=== PATIENT | female | born 2000 | race Caucasian/White ===

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

== ENCOUNTER 2023-06-09 16:54 | Observation (INO) ==
[2023-06-09] MEDS ORDERED: SODIUM CHLORIDE 0.9% 500 ML IV STA (17:13)
[2023-06-09 19:44] LABS: Appearance Urine Clear (Clear); Bacteria Urine Automated Negative (Negative); Bilirubin Urine Negative (Negative); Blood Urine 2+ (Negative); Color Urine Yellow; Epithelial Cell Urine Auto >30 /lpf (0-5); Glucose Urine UA Negative (Negative); Ketones Urine 2+ (Negative); Leukocyte Esterase Urine Negative (Negative); Nitrite Urine Negative (Negative); Protein Urine Trace (Negative); RBC Urine Automated >30 /hpf (0-4); Specific Gravity Urine 1.018 (1.000-1.030); Urobilinogen Urine Negative (Negative); pH Urine 6.5 (4.5-7.5)
[2023-06-09] MEDS ORDERED: MoRPHine SULFATE 4 MG/ML 1 ML CARP\\VIAL IV STA ×2 (19:56→21:33)
[2023-06-09] MEDS ORDERED: KETOROLAC TROMETHAMINE 15 MG/ML VIAL IV STA (19:56)
[2023-06-09] MEDS ORDERED: SODIUM CHLORIDE 0.9% 1000ML 1,000 ML IV ONE (19:56)
[2023-06-09] MEDS ORDERED: ONDANSETRON INJ 2 MG/ML 2 ML VIAL IV STA (19:56)
[2023-06-09 20:01] LABS: Albumin Globulin Ratio 1.5 (0.9-2); Albumin Level 4.7 gm/dl (3.4-5.0); BUN Creatinine Ratio 7.9 (10-20); Bilirubin,Total 0.4 mg/dl (0.2-1.0); Calcium 9.7 mg/dl (8.6-10.3); Creatinine Clr Calc Pharmacy 61.1 ml/min; Est GFR (African American) 78.5 ml/min; Est GFR (Non-African American) 67.7 ml/min; Globulin 3.2 gm/dl (2.5-4.0); Potassium 3.1 mmol/L (3.5-5.1); Total Protein 7.9 gm/dl (6.0-8.3)
--- NOTE | 2023-06-09 20:01 | Emergency Department Note ---
Impression & Plan Acute left flank pain, Hydronephrosis, Hematuria, Renal colic ED Provider Note NAME: DAYA CORMIER AGE: 22 SEX: F : 2000 ARRIVES VIA: Walk-In INFORMANT: [Patient] ED PROVIDER(S): [Ector Gamboa MD] CHIEF COMPLAINT: Flank pain HISTORY OF PRESENT ILLNESS: The patient is a 22-year-old female presents to the ED with complaints of left upper quadrant and left flank pain. The patient was seen in our ED 3 days ago. She had was having vomiting and diarrhea at that time. She was having left upper quadrant pain. Patient was treated here in the ED and felt improved. She was discharged. She states that the diarrhea has quit but the vomiting has returned today and she now has increasing pain in the left upper quadrant into the left flank. She went to [facility] and they felt that this was not a UTI. They recommended a CT scan and she was referred to the ED. Patient has no history of previous renal stone. She has noticed some frequency with urination but no burning to urinate. She has not had vaginal discharge. No fever. No cough or cold or congestion. No shortness of breath. PMHx/PSHx: See Below SOCIAL HISTORY: See Below. PHYSICAL EXAM: GENERAL: Patient is in no acute distress. HEENT: No acute trauma, normocephalic atraumatic, mucous membranes moist, no nasal congestion. NECK: No stridor, no adenopathy, no meningismus, trachea is midline. LUNGS: Clear to auscultation bilaterally, no wheeze, no rhonchi, breath sounds equal. HEART: Without murmurs gallops or rubs, regular rate and rhythm. ABDOMEN: Soft, tender in the epigastrium and left upper quadrant, no pe ritonitis. EXTREMITIES: No cyanosis or edema, full range of motion of all the joints without pain or difficulty, no signs for acute trauma. NEUROLOGIC: Oriented x 3, no acute motor or sensory deficits, no focal weakness. SKIN: No rash, no jaundice, no diaphoresis. Back: Left flank discomfort to percussion. DIFFERENTIAL DIAGNOSIS: Renal colic, pyelonephritis, UTI, gastritis, diverticulitis, dehydration, renal failure, among others. EMERGENCY DEPARTMENT COURSE/PROCEDURES: Prior/Outside records reviewed: Recent ED note. MEDICAL DECISION MAKING: There is a mild leukocytosis, this could be consistent with infection or the stress of her presentation. Of note, the white count is slightly lower than a few days ago. No anemia. The patient has a normal platelet count. Potassium is somewhat low at 3.1, no renal failure. No concerning liver enzyme elevation. Urinalysis shows hematuria, no infection. Abdominal and pelvis CT shows left- sided hydronephrosis with a ureteral stone. On exam, the patient was tender in the left upper quadrant and had left flank discomfort to percussion. She was not febrile or toxic. The patient received IV Zofran, IV saline, IV potassium. She received IV morphine. She was eventually given IV Tylenol, additional IV morphine and then some IV Phenergan. She was given oral Flomax. Patient is still having discomfort despite the above-mentioned medications. This is her second visit now in just a few days. I do think hospitalization will be warranted. I do believe her pain and complaints are from the left ureteral stone/hydronephrosis. DISPOSITION: Patient's presentation and findings warrant a hospital stay. Past Med/Surg History Medical History (Updated 06/09/23 @ 22:18 by Ector Gamboa MD) Anxiety Asthma NO INHALER USED Attention deficit disorder (ADD) Bipolar disorder Celiac disease Depression Migraine Post traumatic stress disorder Surgical History Family history of pseudocholinesterase deficiency MOTHER TESTED POSITIVE (RUNS IN MATERNAL SIDE OF FAMILY) PT HAS HAS SURGERY IN PAST WITH GENERAL ANESTHESIA WITH NO PROBLEMS. History of bunionectomy RT AND HARDWARE REMOVED History of nasal septoplasty History of tooth extraction Social History Smoking Status: Current every day smoker Tobacco Type: E-cigarettes / Vaping Cigarettes Per Day: USES JUUL DAILY; Second Hand Exposure: No; Do You Dip or Chew Tobacco: No; Hx Alcohol Use: No Hx Substance Use: No Preferred Language: Indonesian Communication Ability: Effective Goat Farmer Required: No Beliefs That Will Affect Care: None Current Living Situation: Family Current Living Situation Comment: LIVES WITH FATHER Feels Safe at Home: Yes Assistive Devices: Glasses Allergies Allergies Allergy/AdvReac Type Severity Reaction Status Date / Time gluten Allergy Severe CELIAC Verified 05/20/20 11:08 DISEASE No Known Drug Allergies Allergy Unknown . Verified 05/20/20 11:08 METAL Allergy Intermediate DID NOT Uncoded 05/20/20 11:08 TOLERATE SCREW IN ANKLE-GOT REMOVED Dust Allergy Unknown Uncoded 05/20/20 11:08 No Known Drug Allergies Allergy Unknown Uncoded 05/20/20 11:08 Pollen Allergy Unknown Uncoded 05/20/20 11:08 Ragweed Allergy Unknown Uncoded 05/20/20 11:08 Home Meds Home Medications Medication Instructions Recorded Confirmed lorazepam 0.5 mg tablet 0.5 mg PO DAILY 05/20/20 06/06/23 desogestrel 0.15 mg-ethinyl 1 tab PO DAILY 06/06/23 06/06/23 estradiol 0.03 mg tablet (Isibloom) lamotrigine 100 mg tablet 100 mg PO DAILY 06/06/23 06/06/23 quetiapine 50 mg tablet,extended 50 mg PO DAILY 06/06/23 06/06/23 release 24 hr Previous Rx's Medication Instructions Recorded promethazine 25 mg tablet 25 mg PO Q6H PRN nausea and 06/06/23 vomiting #14 tabs Results & Data (ED) Vital Signs Vital Signs - 24 hr 06/09/23 17:08 Temperature 36.8 C Temperature Source Temporal Artery Scan Pulse Rate 82 Respiratory Rate 18 Respiratory Effort / Characteristics Non-Labored Spontaneous Respiratory Depth Normal Blood Pressure 150/83 H Blood Pressure Mean 105 Blood Pressure Position Sitting Pulse Oximetry 97 Oxygen Delivery Method Room Air Sepsis Recent Fever Within 48 Hours No Sepsis New/Unexplained Change in Mental Status N/A Sepsis Action Taken by Nursing No Action Required Home Medications Current Medication List: was personally reviewed by me Laboratory Data Attestation: I reviewed the patient's lab results. 06/09/23 19:15 06/09/23 19:15 Lab Results 06/09/23 06/09/23 06/09/23 Range/Units 19:03 19:15 19:15 WBC 14.68 H (4.8-10.8) K/ul RBC 4.53 (4.20-5.40) M/uL Hgb 13.6 (12.0-16.0) g/dl Hct 39.8 (37.0-47.0) % MCV 87.9 (80.0-100.0) fL MCH 30.0 (25.0-34.0) pg MCHC 34.2 (32.0-36.0) g/dL RDW Std Deviation 41.6 (36.4-46.3) fL RDW Coeff of Gasper 13.0 (11.5-14.5) % Plt Count 305 (130-400) K/uL MPV 10.4 (9.4-12.4) fL Immature Gran % (Auto) 0.5 % Neut % (Auto) 77.2 % Lymph % (Auto) 15.1 % [place] % (Auto) 6.7 % Eos % (Auto) 0.1 % Baso % (Auto) 0.4 % Neut # (Auto) 11.33 H (1.40-6.50) K/uL Lymph # (Auto) 2.21 (1.2-3.4) K/uL [place] # (Auto) 0.99 H (0.11-0.59) K/uL Eos # (Auto) 0.02 (0-0.50) K/uL Baso # (Auto) 0.06 (0-0.2) K/uL Immature Gran # (Auto) 0.07 (0.01-0.20) K/uL Sodium 140 (136-145) mmol/L Potassium 3.1 L (3.5-5.1) mmol/L Chloride 107 (98-107) mmol/L Carbon Dioxide 21 (21-32) mmol/L Anion Gap 12 H (3-11) BUN 9 (6-23) mg/dl Creatinine 1.14 (0.6-1.2) mg/dl Est Cr Clr Drug Dosing 61.1 ml/min Est GFR ( Amer) 78.5 ml/min Est GFR (Non-Af Amer) 67.7 ml/min BUN/Creatinine Ratio 7.9 L (10-20) Glucose 88 (70-99(Fasting)) mg/dl Calcium 9.7 (8.6-10.3) mg/dl Total Bilirubin 0.4 (0.2-1.0) mg/dl AST 12 L (13-39) U/L ALT 7 (7-52) U/L Alkaline Phosphatase 37 (34-104) U/L Total Protein 7.9 (6.0-8.3) gm/dl Albumin 4.7 (3.4-5.0) gm/dl Globulin 3.2 (2.5-4.0) gm/dl Albumin/Globulin Ratio 1.5 (0.9-2) Urine Color Yellow Urine Appearance Clear (Clear) Urine pH 6.5 (4.5-7.5) Ur Specific [place] 1.018 (1.000-1.030) Urine Protein Trace H (Negative) Urine Glucose (UA) Negative (Negative) Urine Ketones 2+ H (Negative) Urine Blood 2+ H (Negative) Urine Nitrite Negative (Negative) Urine Bilirubin Negative (Negative) Urine Urobilinogen Negative (Negative) Ur Leukocyte Esterase Negative (Negative) Urine WBC (Auto) 1-5 (0-5) /hpf Urine RBC (Auto) >30 H (0-4) /hpf U Hyaline Cast (Auto) 1-5 (0-5) /lpf U Epithel Cells (Auto) >30 H (0-5) /lpf Urine Bacteria (Auto) Negative (Negative) POC Ur Test (NEG) 06/09/23 Range/Units 19:21 WBC (4.8-10.8) K/ul RBC (4.20-5.40) M/uL Hgb (12.0-16.0) g/dl Hct (37.0-47.0) % MCV (80.0-100.0) fL MCH (25.0-34.0) pg MCHC (32.0-36.0) g/dL RDW Std Deviation (36.4-46.3) fL RDW Coeff of Gasper (11.5-14.5) % Plt Count (130-400) K/uL MPV (9.4-12.4) fL Immature Gran % (Auto) % Neut % (Auto) % Lymph % (Auto) % [place] % (Auto) % Eos % (Auto) % Baso % (Auto) % Neut # (Auto) (1.40-6.50) K/uL Lymph # (Auto) (1.2-3.4) K/uL [place] # (Auto) (0.11-0.59) K/uL Eos # (Auto) (0-0.50) K/uL Baso # (Auto) (0-0.2) K/uL Immature Gran # (Auto) (0.01-0.20) K/uL Sodium (136-145) mmol/L Potassium (3.5-5.1) mmol/L Chloride (98-107) mmol/L Carbon Dioxide (21-32) mmol/L Anion Gap (3-11) BUN (6-23) mg/dl Creatinine (0.6-1.2) mg/dl Est Cr Clr Drug Dosing ml/min Est GFR ( Amer) ml/min Est GFR (Non-Af Amer) ml/min BUN/Creatinine Ratio (10-20) Glucose (70-99(Fasting)) mg/dl Calcium (8.6-10.3) mg/dl Total Bilirubin (0.2-1.0) mg/dl AST (13-39) U/L ALT (7-52) U/L Alkaline Phosphatase (34-104) U/L Total Protein (6.0-8.3) gm/dl Albumin (3.4-5.0) gm/dl Globulin (2.5-4.0) gm/dl Albumin/Globulin Ratio (0.9-2) Urine Color Urine Appearance (Clear) Urine pH (4.5-7.5) Ur Specific [place] (1.000-1.030) Urine Protein (Negative) Urine Glucose (UA) (Negative) Urine Ketones (Negative) Urine Blood (Negative) Urine Nitrite (Negative) Urine Bilirubin (Negative) Urine Urobilinogen (Negative) Ur Leukocyte Esterase (Negative) Urine WBC (Auto) (0-5) /hpf Urine RBC (Auto) (0-4) /hpf U Hyaline Cast (Auto) (0-5) /lpf U Epithel Cells (Auto) (0-5) /lpf Urine Bacteria (Auto) (Negative) POC Ur Test NEG (NEG) Administered Medications Discontinued Medications Sodium Chloride (Nss) 500 mls @ 999 mls/hr IV .Q31M STA Stop: 06/09/23 17:43 Last Infusion: 06/09/23 20:41 Dose: 0 mls/hr Documented By: Admin: 06/09/23 19:49 Dose: 999 mls/hr Documented By: CAREN Sodium Chloride (Nss 1000ml) 1,000 mls @ 999 mls/hr IV .Q1H1M ONE Stop: 06/09/23 20:56 Last Infusion: 06/09/23 22:01 Dose: 0 mls/hr Documented By: Admin: 06/09/23 20:21 Dose: 999 mls/hr Documented By: CAREN Potassium Chloride (K [place] / Wtr) 10 meq in 100 mls @ 100 mls/hr IV ONE ONE Stop: 06/09/23 21:20 Last Infusion: 06/09/23 22:00 Dose: 0 mls/hr Documented By: Admin: 06/09/23 20:59 Dose: 100 mls/hr Documented By: CAREN Ketorolac Tromethamine (Ketorolac Tromethamine 15 Mg/Ml Vial) 15 mg IV NOW STA Stop: 06/09/23 19:57 Last Admin: 06/09/23 20:21 Dose: 15 mg Documented By: CAREN Morphine Sulfate (Morphine Sulfate 4 Mg/Ml 1 Ml Carp\Vial) 4 mg IV NOW STA Stop: 06/09/23 19:57 Last Admin: 06/09/23 20:21 Dose: 4 mg Documented By: CAREN Ondansetron HCl (Ondansetron Inj 2 Mg/Ml 2 Ml Vial) 4 mg IV NOW STA Stop: 06/09/23 19:57 Last Admin: 06/09/23 20:21 Dose: 4 mg Documented By: CAREN Tamsulosin HCl (Tamsulosin Hcl 0.4 Mg Cap) 0.4 mg PO NOW ONE Stop: 06/09/23 20:54 Last Admin: 06/09/23 21:15 Dose: 0.4 mg Documented By: CAREN Imaging Data Radiologist's Impression: Abdomen/Pelvis CT 06/09/23 19:56 Exam(s): CT ABDOMEN + PELVIS Without Contrast EXAM: CT Abdomen and Pelvis Without Intravenous Contrast CLINICAL HISTORY: Reason for exam: luq and flank pain. TECHNIQUE: Axial computed tomography images of the abdomen and pelvis without intravenous contrast. CTDI is 11.42 mGy and DLP is 536.14 mGy-cm. Automated exposure control was utilized for the study. A dose lowering technique was utilized adhering to the principles of ALARA. COMPARISON: No relevant prior studies available. FINDINGS: Lung bases: Unremarkable. No mass. No consolidation. ABDOMEN: Liver: Unremarkable. Gallbladder and bile ducts: Unremarkable. No calcified stones. No ductal dilation. Pancreas: Unremarkable. No ductal dilation. Spleen: Unremarkable. No splenomegaly. Adrenals: Unremarkable. No mass. Kidneys and ureters: Obstructing 2 mm left UVJ stone causing mild upstream hydroureteronephrosis. Right kidney and collecting system are normal. Stomach and bowel: Unremarkable. No obstruction. No mucosal thickening. PELVIS: Appendix: Visualized segment of the appendix is normal; no secondary signs of appendicitis. Bladder: Unremarkable. No stones. Reproductive: Unremarkable as visualized. ABDOMEN and PELVIS: Intraperitoneal space: Unremarkable. No free air. No significant fluid collection. Bones/joints: No acute fracture. No dislocation. Soft tissues: Unremarkable. Vasculature: Unremarkable. No abdominal aortic aneurysm. Lymph nodes: Unremarkable. No enlarged lymph nodes. IMPRESSION: Obstructing 2 mm left UVJ stone causing mild upstream hydroureteronephrosis. Electronically signed by: Eyad Salcedo M.D. 06/09/23 20:49 PM Discharge Plan Visit Data Chief Complaint: Flank Pain Stated Complaint: CRAMPING,BACK PAIN,BLADDER FEELS FULL ED Provider: Ector Gamboa Discharge Problem: Acute left flank pain, Hydronephrosis, Hematuria, Renal colic Patient Disposition: Admitted As Inpatient Condition: Fair Forms Stand Alone Forms: [facility] [place] [employer] Prescriptions Prescriptions: No Action lorazepam 0.5 mg tablet 0.5 mg PO DAILY desogestrel-ethinyl estradiol [Isibloom] 0.15-0.03 mg tablet 1 tab PO DAILY lamotrigine 100 mg tablet 100 mg PO DAILY quetiapine 50 mg tablet extended release 24 hr 50 mg PO DAILY Rx Instructions: Per pt she takes 50-100 mg promethazine 25 mg tablet 25 mg PO Q6H PRN (Reason: nausea and vomiting) Qty: 14 0RF Referrals Referrals: PCP,NO [Physician] -
[2023-06-09 20:02] LABS: Basophils # (auto) 0.06 K/uL (0-0.2); Basophils % (auto) 0.4 %; Eosinophils # (auto) 0.02 K/uL (0-0.50); Eosinophils % (auto) 0.1 %; Hematocrit (blood only) 39.8 % (37.0-47.0); Hemoglobin 13.6 g/dl (12.0-16.0); Immature Granulocytes # (auto) 0.07 K/uL (0.01-0.20); Immature Granulocytes % (auto) 0.5 %; Lymphocytes # (auto) 2.21 K/uL (1.2-3.4); Lymphocytes % (auto) 15.1 %; Mean Corpuscular Hgb Conc 34.2 g/dL (32.0-36.0); Mean Corpuscular Volume 87.9 fL (80.0-100.0); Mean Platelet Volume 10.4 fL (9.4-12.4); Monocytes # (auto) 0.99 K/uL (0.11-0.59); Monocytes % (auto) 6.7 %; Neutrophils # (auto) 11.33 K/uL (1.40-6.50); Neutrophils % (auto) 77.2 %; Platelet Count 305 K/uL (130-400); RDW Standard Deviation 41.6 fL (36.4-46.3); Red Blood Count 4.53 M/uL (4.20-5.40); White Blood Count 14.68 K/ul (4.8-10.8)
[2023-06-09] MEDS ORDERED: POTASSIUM CHLORIDE / WTR 10 MEQ/100 ML PLCT IV ONE (20:21)
--- NOTE | 2023-06-09 20:51 | CT Scan Report ---
Exam(s): CT ABDOMEN + PELVIS Without Contrast EXAM: CT Abdomen and Pelvis Without Intravenous Contrast CLINICAL HISTORY: Reason for exam: luq and flank pain. TECHNIQUE: Axial computed tomography images of the abdomen and pelvis without intravenous contrast. CTDI is 11.42 mGy and DLP is 536.14 mGy-cm. Automated exposure control was utilized for the study. A dose lowering technique was utilized adhering to the principles of ALARA. COMPARISON: No relevant prior studies available. FINDINGS: Lung bases: Unremarkable. No mass. No consolidation. ABDOMEN: Liver: Unremarkable. Gallbladder and bile ducts: Unremarkable. No calcified stones. No ductal dilation. Pancreas: Unremarkable. No ductal dilation. Spleen: Unremarkable. No splenomegaly. Adrenals: Unremarkable. No mass. Kidneys and ureters: Obstructing 2 mm left UVJ stone causing mild upstream hydroureteronephrosis. Right kidney and collecting system are normal. Stomach and bowel: Unremarkable. No obstruction. No mucosal thickening. PELVIS: Appendix: Visualized segment of the appendix is normal; no secondary signs of appendicitis. Bladder: Unremarkable. No stones. Reproductive: Unremarkable as visualized. ABDOMEN and PELVIS: Intraperitoneal space: Unremarkable. No free air. No significant fluid collection. Bones/joints: No acute fracture. No dislocation. Soft tissues: Unremarkable. Vasculature: Unremarkable. No abdominal aortic aneurysm. Lymph nodes: Unremarkable. No enlarged lymph nodes. IMPRESSION: Obstructing 2 mm left UVJ stone causing mild upstream hydroureteronephrosis. Electronically signed by: Eyad Salcedo M.D. 06/09/23 20:49 PM
[2023-06-09] MEDS ORDERED: TAMSULOSIN HCL 0.4 MG CAP PO ONE (20:53)
[2023-06-09] MEDS ORDERED: ACETAMINOPHEN 1,000 MG/100 ML VIAL IV STA (21:33)
[2023-06-09] MEDS ORDERED: PROMETHAZINE 6.25 MG/50.25 ML BAG IV STA (21:33)
[2023-06-09] MEDS ORDERED: KETOROLAC TROMETHAMINE 15 MG/ML VIAL IV ONE (22:43)
[2023-06-09] MEDS ORDERED: PROMETHAZINE HCL 6.25 MG in SODIUM CHLORIDE 0.9% 50 ML IV PRN (22:44)
[2023-06-09] MEDS ORDERED: LORazepam 2 MG/1 ML VIAL IV PRN (22:44)
[2023-06-09] MEDS ORDERED: LACTATED RINGER'S 1,000 ML IV ONE (22:45)
[2023-06-09 22:51] LABS: Magnesium 1.8 mg/dl (1.7-2.4)
[2023-06-09] MEDS: POTASSIUM CHLORIDE / WTR 10 MEQ/100 ML PLCT IV SCH (23:40)
[2023-06-10] MEDS ORDERED: MAGNESIUM SULFATE / D5W 1 GM/100 ML BAG IV ONE (00:26)
[2023-06-10] MEDS ORDERED: lamoTRIgine 100 MG TAB PO STA (00:54)
[2023-06-10] MEDS ORDERED: QUEtiapine FUMARATE 50 MG TABCR PO STA (00:54)
[2023-06-10] MEDS ORDERED: ALPRAZolam 0.5 MG TABLET PO PRN (01:01)
[2023-06-10] MEDS ORDERED: KETOROLAC TROMETHAMINE 15 MG/ML VIAL IV PRN (01:01)
[2023-06-10] MEDS ORDERED: oxyCODONE HCL IR 5 MG TAB (IMMEDIATE RELEASE) PO PRN (01:01)
[2023-06-10] MEDS: POTASSIUM CHLORIDE / WTR 10 MEQ/100 ML PLCT IV SCH ×2 (01:09→02:15)
--- NOTE | 2023-06-10 05:11 | History & Physical Report ---
Date of Service June 10, 2023 Assessment & Plan (1) Renal colic: Plan: Secondary to obstructive uropathy/urolithiasis no prior episodes No sepsis for now Hypokalemia secondary to illness bronchial asthma, stable anxiety/mood disorder, patient admits to increased anxiety from illness ongoing vape use GMF Analgesia, IVF Continue Flomax strain urine Urology consult in a.m. Re: Obstructive uropathy N.p.o. until patient seen by urology in anticipation of procedure. Replace potassium Anxiolytic as needed Nicotine replacement therapy as needed DVT prophylaxis. SCDs Re: Hematuria Full code Patient mother requesting updates providers. Ms. Sade Cutler, contact #[phone]. Text document was generated using [employer] voice recognition software. It may contain grammatical or spelling errors. Kindly contact undersigned for clarification of any documentation item in question. History of Present Illness Chief Complaint: Worsening left-sided abdominal/flank pain Primary Care Provider: Dr. Ritika Campuzano History obtained from patient, family, and records. Medical history significant for bronchial asthma, anxiety/mood disorder, GERD, celiac disease, ongoing vape use. 4 days ago patient noted achy left-sided abdominal pain, nausea, vomiting diarrhea symptoms. Symptoms attributed to viral gastroenteritis. Seen at the ER but later discharged home. Worsening symptoms later associated with GI symptoms and hematuria. No fever, no chills, no chest pain, no SOB. Patient seen at urgent care center yesterday. UA and CAT scan requested. Patient consulted ER for worsening symptoms. Flomax administered at the ER for renal colic. Medical History as above Surgical History : Bunion surgery, dental surgery Family History : Celiac disease, hypertension, DM Personal/Social history : Vape use, no EtOH intake, hairstylist Allergies Allergy/AdvReac Type Severity Reaction Status Date / Time gluten Allergy Severe CELIAC Verified 05/20/20 11:08 DISEASE grass pollen Allergy Unknown Unknown Verified 06/09/23 22:49 house dust Allergy Unknown Unknown Verified 06/09/23 22:49 nickel Allergy Unknown Unknown Verified 06/09/23 22:49 No Known Drug Allergies Allergy Unknown . Verified 05/20/20 11:08 ragweed pollen Allergy Unknown Unknown Verified 06/09/23 22:49 Home Medications Medication Instructions Recorded Confirmed Type lamotrigine 100 mg tablet 100 mg PO HS 07/11/23 07/11/23 History promethazine 25 mg tablet 25 mg PO Q6H PRN nausea and 06/06/23 Rx vomiting #14 tabs quetiapine 50 mg tablet,extended 100 mg PO DAILY 06/06/23 06/06/23 History release 24 hr alprazolam 0.5 mg tablet 0.5 mg PO BID PRN Anxiety 06/10/23 06/10/23 History ibuprofen 400 mg tablet 400 mg PO Q6H PRN pain #14 tabs 06/10/23 Rx tamsulosin 0.4 mg capsule 0.4 mg PO HS 10 days #10 caps 06/10/23 Rx Past Med/Surg History Medical History (Updated 06/09/23 @ 22:18 by Ector Gamboa MD) Anxiety Asthma NO INHALER USED Attention deficit disorder (ADD) Bipolar disorder Celiac disease Depression Migraine Post traumatic stress disorder Surgical History Family history of pseudocholinesterase deficiency MOTHER TESTED POSITIVE (RUNS IN MATERNAL SIDE OF FAMILY) PT HAS HAS SURGERY IN PAST WITH GENERAL ANESTHESIA WITH NO PROBLEMS. History of bunionectomy RT AND HARDWARE REMOVED History of nasal septoplasty History of tooth extraction Social History Smoking Status: Current every day smoker Tobacco Type: E-cigarettes / Vaping Cigarettes Per Day: vape; Second Hand Exposure: No; Do You Dip or Chew Tobacco: No; Hx Alcohol Use: No Hx Substance Use: Yes Last Used Substance: Days (ago) Last Used Substance Other:: 1 day ago Substance Use Type Other:: has med card for marijuana Preferred Language: [place] Communication Ability: Effective Forward Air Controller/Air Officer Required: No Beliefs That Will Affect Care: None Current Living Situation: Alone Current Living Situation Comment: LIVES WITH FATHER Feels Safe at Home: Yes Assistive Devices: None Review of Systems Review of Systems: As per HPI, all other systems reviewed and negative Physical Exam Physical Exam: GENERAL: Comfortable, slightly anxious, no respiratory distress SKIN: Normal color, warm HEENT: [place] palpebral conjunctivae, no ptosis, dry buccal mucosa NECK : Supple, no tenderness CHEST : CTA, no tenderness HEART : RRR, no obvious murmurs ABDOMEN: Some distention, left-sided abdominal tenderness EXTREMITIES : No LE swelling/tenderness, no other conspicuous deformities noted NEUROLOGIC : Coherent, no facial asymmetry, no other gross focality Results & Data Results & Data Vital Signs (Past 12 Hours) Vital Signs Temp Pulse Resp BP Pulse Ox O2 Del Method 06/09/23 23:00 70 22 97 06/09/23 22:31 59 L 20 101/61 100 06/09/23 22:26 49 L 15 110/61 98 06/09/23 21:20 52 L 18 99 06/09/23 17:08 36.8 C 82 18 150/83 H 97 Room Air Laboratory Results Lab Results 06/09/23 06/09/23 06/09/23 Range/Units 19:03 19:15 19:15 WBC 14.68 H (4.8-10.8) K/ul RBC 4.53 (4.20-5.40) M/uL Hgb 13.6 (12.0-16.0) g/dl Hct 39.8 (37.0-47.0) % MCV 87.9 (80.0-100.0) fL MCH 30.0 (25.0-34.0) pg MCHC 34.2 (32.0-36.0) g/dL RDW Std Deviation 41.6 (36.4-46.3) fL RDW Coeff of [place] 13.0 (11.5-14.5) % Plt Count 305 (130-400) K/uL MPV 10.4 (9.4-12.4) fL Immature Gran % (Auto) 0.5 % Neut % (Auto) 77.2 % Lymph % (Auto) 15.1 % [place] % (Auto) 6.7 % Eos % (Auto) 0.1 % Baso % (Auto) 0.4 % Neut # (Auto) 11.33 H (1.40-6.50) K/uL Lymph # (Auto) 2.21 (1.2-3.4) K/uL [place] # (Auto) 0.99 H (0.11-0.59) K/uL Eos # (Auto) 0.02 (0-0.50) K/uL Baso # (Auto) 0.06 (0-0.2) K/uL Immature Gran # (Auto) 0.07 (0.01-0.20) K/uL Sodium 140 (136-145) mmol/L Potassium 3.1 L (3.5-5.1) mmol/L Chloride 107 (98-107) mmol/L Carbon Dioxide 21 (21-32) mmol/L Anion Gap 12 H (3-11) BUN 9 (6-23) mg/dl Creatinine 1.14 (0.6-1.2) mg/dl Est Cr Clr Drug Dosing 61.1 ml/min Est GFR ( Amer) 78.5 ml/min Est GFR (Non-Af Amer) 67.7 ml/min BUN/Creatinine Ratio 7.9 L (10-20) Glucose 88 (70-99(Fasting)) mg/dl Calcium 9.7 (8.6-10.3) mg/dl Magnesium 1.8 (1.7-2.4) mg/dl Total Bilirubin 0.4 (0.2-1.0) mg/dl AST 12 L (13-39) U/L ALT 7 (7-52) U/L Alkaline Phosphatase 37 (34-104) U/L Total Protein 7.9 (6.0-8.3) gm/dl Albumin 4.7 (3.4-5.0) gm/dl Globulin 3.2 (2.5-4.0) gm/dl Albumin/Globulin Ratio 1.5 (0.9-2) TSH (0.300-4.500) uIu/ml Urine Color Yellow Urine Appearance Clear (Clear) Urine pH 6.5 (4.5-7.5) Ur Specific [place] 1.018 (1.000-1.030) Urine Protein Trace H (Negative) Urine Glucose (UA) Negative (Negative) Urine Ketones 2+ H (Negative) Urine Blood 2+ H (Negative) Urine Nitrite Negative (Negative) Urine Bilirubin Negative (Negative) Urine Urobilinogen Negative (Negative) Ur Leukocyte Esterase Negative (Negative) Urine WBC (Auto) 1-5 (0-5) /hpf Urine RBC (Auto) >30 H (0-4) /hpf U Hyaline Cast (Auto) 1-5 (0-5) /lpf U Epithel Cells (Auto) >30 H (0-5) /lpf Urine Bacteria (Auto) Negative (Negative) POC Ur Test (NEG) SARS-CoV-2, RNA, NAAT (NEGATIVE) 07/14/23 07/14/23 07/14/23 Range/Units 19:15 19:21 23:13 WBC (4.8-10.8) K/ul RBC (4.20-5.40) M/uL Hgb (12.0-16.0) g/dl Hct (37.0-47.0) % MCV (80.0-100.0) fL MCH (25.0-34.0) pg MCHC (32.0-36.0) g/dL RDW Std Deviation (36.4-46.3) fL RDW Coeff of [place] (11.5-14.5) % Plt Count (130-400) K/uL MPV (9.4-12.4) fL Immature Gran % (Auto) % Neut % (Auto) % Lymph % (Auto) % [place] % (Auto) % Eos % (Auto) % Baso % (Auto) % Neut # (Auto) (1.40-6.50) K/uL Lymph # (Auto) (1.2-3.4) K/uL [place] # (Auto) (0.11-0.59) K/uL Eos # (Auto) (0-0.50) K/uL Baso # (Auto) (0-0.2) K/uL Immature Gran # (Auto) (0.01-0.20) K/uL Sodium (136-145) mmol/L Potassium (3.5-5.1) mmol/L Chloride (98-107) mmol/L Carbon Dioxide (21-32) mmol/L Anion Gap (3-11) BUN (6-23) mg/dl Creatinine (0.6-1.2) mg/dl Est Cr Clr Drug Dosing ml/min Est GFR ( Amer) ml/min Est GFR (Non-Af Amer) ml/min BUN/Creatinine Ratio (10-20) Glucose (70-99(Fasting)) mg/dl Calcium (8.6-10.3) mg/dl Magnesium (1.7-2.4) mg/dl Total Bilirubin (0.2-1.0) mg/dl AST (13-39) U/L ALT (7-52) U/L Alkaline Phosphatase (34-104) U/L Total Protein (6.0-8.3) gm/dl Albumin (3.4-5.0) gm/dl Globulin (2.5-4.0) gm/dl Albumin/Globulin Ratio (0.9-2) TSH 1.318 (0.300-4.500) uIu/ml Urine Color Urine Appearance (Clear) Urine pH (4.5-7.5) Ur Specific [place] (1.000-1.030) Urine Protein (Negative) Urine Glucose (UA) (Negative) Urine Ketones (Negative) Urine Blood (Negative) Urine Nitrite (Negative) Urine Bilirubin (Negative) Urine Urobilinogen (Negative) Ur Leukocyte Esterase (Negative) Urine WBC (Auto) (0-5) /hpf Urine RBC (Auto) (0-4) /hpf U Hyaline Cast (Auto) (0-5) /lpf U Epithel Cells (Auto) (0-5) /lpf Urine Bacteria (Auto) (Negative) POC Ur Test NEG (NEG) SARS-CoV-2, RNA, NAAT NEGATIVE (NEGATIVE) 06/10/23 06/10/23 Range/Units 06:47 06:47 WBC 9.50 (4.8-10.8) K/ul RBC 3.75 L (4.20-5.40) M/uL Hgb 11.1 L (12.0-16.0) g/dl Hct 32.7 L (37.0-47.0) % MCV 87.2 (80.0-100.0) fL MCH 29.6 (25.0-34.0) pg MCHC 33.9 (32.0-36.0) g/dL RDW Std Deviation 41.3 (36.4-46.3) fL RDW Coeff of [place] 13.1 (11.5-14.5) % Plt Count 236 (130-400) K/uL MPV 10.5 (9.4-12.4) fL Immature Gran % (Auto) 0.3 % Neut % (Auto) 54.8 % Lymph % (Auto) 37.4 % [place] % (Auto) 6.8 % Eos % (Auto) 0.3 % Baso % (Auto) 0.4 % Neut # (Auto) 5.20 (1.40-6.50) K/uL Lymph # (Auto) 3.55 H (1.2-3.4) K/uL [place] # (Auto) 0.65 H (0.11-0.59) K/uL Eos # (Auto) 0.03 (0-0.50) K/uL Baso # (Auto) 0.04 (0-0.2) K/uL Immature Gran # (Auto) 0.03 (0.01-0.20) K/uL Sodium 138 (136-145) mmol/L Potassium 4.0 D (3.5-5.1) mmol/L Chloride 111 H (98-107) mmol/L Carbon Dioxide 21 (21-32) mmol/L Anion Gap 6 (3-11) BUN 6 (6-23) mg/dl Creatinine 0.70 D (0.6-1.2) mg/dl Est Cr Clr Drug Dosing 100.2 ml/min Est GFR ( Amer) 141.5 ml/min Est GFR (Non-Af Amer) 122.1 ml/min BUN/Creatinine Ratio 8.6 L (10-20) Glucose 86 (70-99(Fasting)) mg/dl Calcium 8.2 L (8.6-10.3) mg/dl Magnesium (1.7-2.4) mg/dl Total Bilirubin (0.2-1.0) mg/dl AST (13-39) U/L ALT (7-52) U/L Alkaline Phosphatase (34-104) U/L Total Protein (6.0-8.3) gm/dl Albumin (3.4-5.0) gm/dl Globulin (2.5-4.0) gm/dl Albumin/Globulin Ratio (0.9-2) TSH (0.300-4.500) uIu/ml Urine Color Urine Appearance (Clear) Urine pH (4.5-7.5) Ur Specific [place] (1.000-1.030) Urine Protein (Negative) Urine Glucose (UA) (Negative) Urine Ketones (Negative) Urine Blood (Negative) Urine Nitrite (Negative) Urine Bilirubin (Negative) Urine Urobilinogen (Negative) Ur Leukocyte Esterase (Negative) Urine WBC (Auto) (0-5) /hpf Urine RBC (Auto) (0-4) /hpf U Hyaline Cast (Auto) (0-5) /lpf U Epithel Cells (Auto) (0-5) /lpf Urine Bacteria (Auto) (Negative) POC Ur Test (NEG) SARS-CoV-2, RNA, NAAT (NEGATIVE) CT abdomen pelvis: Obstructing 2 mm left UVJ stone causing mild upstream hydroureteronephrosis.
[2023-06-10 07:24] LABS: Basophils # (auto) 0.04 K/uL (0-0.2); Basophils % (auto) 0.4 %; Eosinophils # (auto) 0.03 K/uL (0-0.50); Eosinophils % (auto) 0.3 %; Hematocrit (blood only) 32.7 % (37.0-47.0); Hemoglobin 11.1 g/dl (12.0-16.0); Immature Granulocytes # (auto) 0.03 K/uL (0.01-0.20); Immature Granulocytes % (auto) 0.3 %; Lymphocytes # (auto) 3.55 K/uL (1.2-3.4); Lymphocytes % (auto) 37.4 %; Mean Corpuscular Hemoglobin 29.6 pg (25.0-34.0); Mean Corpuscular Hgb Conc 33.9 g/dL (32.0-36.0); Mean Corpuscular Volume 87.2 fL (80.0-100.0); Mean Platelet Volume 10.5 fL (9.4-12.4); Monocytes # (auto) 0.65 K/uL (0.11-0.59); Monocytes % (auto) 6.8 %; Neutrophils % (auto) 54.8 %; Platelet Count 236 K/uL (130-400); RDW Coefficient of Variation 13.1 % (11.5-14.5); RDW Standard Deviation 41.3 fL (36.4-46.3); Red Blood Count 3.75 M/uL (4.20-5.40)
[2023-06-10 07:40] LABS: BUN Creatinine Ratio 8.6 (10-20); Calcium 8.2 mg/dl (8.6-10.3); Creatinine Clr Calc Pharmacy 100.2 ml/min; Est GFR (African American) 141.5 ml/min; Est GFR (Non-African American) 122.1 ml/min
--- NOTE | 2023-06-10 09:18 | Urology Consultation ---
Date of Consultation June 10, 2023 Assessment & Plan (1) Acute left flank pain: (2) Hydronephrosis: (3) Renal colic: Plan We reviewed the stone seen on her CT scan. The stone is small enough that she has a very high chance of passing it spontaneously. I would recommend that she continue to stay well-hydrated and would trial tamsulosin (0.4 mg daily) to help with passage. She should strain all urine. We discussed that intervention could be undertaken with cystoscopy, possible ureteroscopy and stone removal, ureteral stent placement. At this point, I think the risks of surgery outweigh the benefits of giving her a trial of passage with medical expulsive therapy. She was in agreement with this. For now, we will plan on the following: No operative intervention at this time, okay to have a diet Continue tamsulosin Monitor for fevers or chills Strain all urine If she is feeling well this afternoon, even if she has not passed the stone it would be ok for discharge home on medical expulsive therapy. If she continues to have poorly controlled pain and cannot be discharged and cannot pass the stone, we will tentatively plan for operative intervention on 06/11. History of Present Illness Attending Physician: Gold Freeman MD History of Present Illness This is a 22-year-old female who presented to the emergency department on 06/09/2023 with left-sided flank pain associated with nausea. Work-up in the emergency department was notable for a 1 to 2 mm stone at the left ureterovesical junction. Due to poorly controlled pain, she was admitted to the hospital. This morning, she is still having some discomfort but feels much better than she did. To her knowledge, she has not passed the stone yet. She has been straining her urine. She has no prior history of kidney stones. She reports a history of UTIs, and recently had some urinary frequency. Labs reviewed: 06/10/2023: WBC 9.5, hemoglobin 11.1 Creatinine: 0.70 Urinalysis: Negative nitrites, negative leukocyte esterase, 2+ blood, greater than 30 epithelial cells, negative bacteria Independently reviewed her CT scan from 06/09/2023. Both kidneys are normal size. There is mild fullness of the left ureter and collecting system. There is a 1 to 2 mm stone at the left UVJ. Her bladder appears grossly normal. Allergies Allergy/AdvReac Type Severity Reaction Status Date / Time gluten Allergy Severe CELIAC Verified 05/20/20 11:08 DISEASE grass pollen Allergy Unknown Unknown Verified 06/09/23 22:49 house dust Allergy Unknown Unknown Verified 06/09/23 22:49 nickel Allergy Unknown Unknown Verified 06/09/23 22:49 No Known Drug Allergies Allergy Unknown . Verified 05/20/20 11:08 ragweed pollen Allergy Unknown Unknown Verified 06/09/23 22:49 Home Medications Medication Instructions Recorded Confirmed Type lamotrigine 100 mg tablet 100 mg PO HS 06/06/23 06/06/23 History promethazine 25 mg tablet 25 mg PO Q6H PRN nausea and 06/06/23 Rx vomiting #14 tabs quetiapine 50 mg tablet,extended 100 mg PO DAILY 06/06/23 06/06/23 History release 24 hr alprazolam 0.5 mg tablet 0.5 mg PO BID PRN Anxiety 06/10/23 06/10/23 History Patient History Medical History (Updated 06/09/23 @ 22:18 by Ector Gamboa MD) Anxiety Asthma NO INHALER USED Attention deficit disorder (ADD) Bipolar disorder Celiac disease Depression Migraine Post traumatic stress disorder Surgical History Family history of pseudocholinesterase deficiency MOTHER TESTED POSITIVE (RUNS IN MATERNAL SIDE OF FAMILY) PT HAS HAS SURGERY IN PAST WITH GENERAL ANESTHESIA WITH NO PROBLEMS. History of bunionectomy RT AND HARDWARE REMOVED History of nasal septoplasty History of tooth extraction Social History Smoking Status: Current every day smoker Tobacco Type: E-cigarettes / Vaping Cigarettes Per Day: vape; Second Hand Exposure: No; Do You Dip or Chew Tobacco: No; Tobacco Cessation Education Requested by Patient: No Hx Alcohol Use: No Hx Substance Use: Yes Last Used Substance: Days (ago) Last Used Substance Other:: 1 day ago Substance Use Type Other:: has med card for marijuana Preferred Language: Lao Communication Ability: Effective Waterfront Director Required: No Beliefs That Will Affect Care: None Current Living Situation: Alone Current Living Situation Comment: LIVES WITH FATHER Other Information That Helps Us Care for You: No Feels Safe at Home: Yes Safety Concerns: Feels Safe At This Time Assistive Devices: None Review of Systems Review of Systems: 12 point review of systems negative except for otherwise indicated. Physical Exam Constitutional: well developed and well nourished; no acute distress Eyes: + anicteric sclerae; pupils not irregular Respiratory: normal respiratory effort; no respiratory distress, does not use accessory muscles and no cough Cardiovascular: well perfused Gastrointestinal (Abdomen): Inspection/Auscultation: abdomen normal to inspection; abdomen not distended Musculoskeletal: Extremities: extremities normal to inspection Skin: normal turgor; no rashes and no lesions Neurologic: moves all extremities and awake Psychiatric: Orientation: alert and oriented x 3 Results & Data Vital Signs (Past 12 Hours) Vital Signs Temp Pulse Pulse Resp BP BP Pulse Ox 06/10/23 08:51 36.8 C 66 18 107/67 97 06/10/23 03:05 36.8 C 77 16 124/77 99 06/10/23 03:20 06/09/23 23:00 70 22 97 06/09/23 22:31 59 L 20 101/61 100 06/09/23 22:26 49 L 15 110/61 98 06/09/23 21:20 52 L 18 99 O2 Del Method 06/10/23 08:51 Room Air 06/10/23 03:05 Room Air 06/10/23 03:20 Room Air 06/09/23 23:00 06/09/23 22:31 06/09/23 22:26 06/09/23 21:20 PG Care Time/CCT Total # of Minutes Spent Total Time Spent with Patient: Total time spent is greater than 50% in coordination of care (as documented) at patient's floor/unit and/or counseling patient: Coding Level of Care Code 67698 IN/OBS CONSULT LVL 4,60M Diagnoses Acute left flank pain R10.9 Hydronephrosis N13.2 Hydronephrosis type: with renal calculous obstruction Renal colic N23 (2) Hydronephrosis Hydronephrosis type: with renal calculous obstruction Qualified Code(s): N13.2 - Hydronephrosis with renal and ureteral calculous obstruction
[2023-06-10] MEDS ORDERED: SODIUM CHLORIDE 0.9% 1000ML 1,000 ML IV SCH (09:30)
--- NOTE | 2023-06-10 14:20 | Hospitalist Progress Note ---
Date of Service June 10, 2023 Assessment & Plan (1) Renal colic: Plan: 2 mm UVJ stone, left Renal function preserved Urinalysis no signs of UTI Continue IV NSS at 150 cc/h Flomax Urology consulted Hypokalemia Resolved bronchial asthma, stable anxiety/mood disorder, patient admits to increased anxiety from illness ongoing vape use DVT prophylaxis. SCDs Re: Hematuria Full code Disposition Anticipate discharge to home medically stable plan of care discussed with patient in detail and at length all questions answered she is understanding, agreeable, comfortable with the plan of care Admission and Anticipated Discharge Date Admission Date: June 10, 2023 Subjective ff up for UVJ stone 2mm, etc seen resting in bed, sitting up, not in distress RN José Miguel at bedside throughout whole encounter States that she still has left quadrant pain No nausea, vomiting, fevers or chills Voiding with no problems Urine [id number] if this is because of her. No other new symptoms Review of Systems Review of Systems: all noted and negative except for above Physical Exam Physical Exam: General- oriented x 3, not in distress, speaks in sentences with no effort or accessory muscle use Head- atraumatic Eyes- PERRL, EOMI, anicteric ENT- oropharynx clear Neck- supple, no JVD, no adenopathy, no thyromegaly; carotids +2/2, no bruits appreciated Lungs- clear to auscultation bilaterally, no rales/wheezes Heart- normal rate, regular rhythm; no murmur, no gallop, no rub appreciated Abdomen- normal bowel sounds, nondistended, soft, mild left upper quadrant tenderness, no masses or hepatosplenomegaly No CVA tenderness Extremities- no pretibial edema, no calf tenderness; peripheral pulses intact Neuro- alert, oriented x 3; CN 2-12 grossly intact; motor 5/5 bilaterally;sensation 100% on all extremities; no other gross focal neurologic deficits Skin- warm & dry Results & Data Results & Data Vital Signs (Past 12 Hours) Vital Signs Temp Pulse Resp BP Pulse Ox O2 Del Method 06/10/23 08:51 36.8 C 66 18 107/67 97 Room Air 06/10/23 03:05 36.8 C 77 16 124/77 99 Room Air 06/10/23 03:20 Room Air all noted and reviewed including below
--- NOTE | 2023-06-10 18:58 | Discharge Summary ---
Discharge Summary Date of Service June 10, 2023 Notes For Next Care Provider Medication Changes From Visit Flomax 0.4 mg at night Ibuprofen 400 mg every 6 hours as needed Admission HPI Per Admitting Provider History obtained from patient, family, and records. Medical history significant for bronchial asthma, anxiety/mood disorder, GERD, celiac disease, ongoing vape use. 4 days ago patient noted achy left-sided abdominal pain, nausea, vomiting diarrhea symptoms. Symptoms attributed to viral gastroenteritis. Seen at the ER but later discharged home. Worsening symptoms later associated with GI symptoms and hematuria. No fever, no chills, no chest pain, no SOB. Patient seen at urgent care center yesterday. UA and CAT scan requested. Patient consulted ER for worsening symptoms. Flomax administered at the ER for renal colic. Medical History as above Surgical History : Family History : Personal/Social history : Principal Dx & Hospital Course #1 = Principal Diagnosis (1) Renal colic: 2 mm UVJ stone, left Renal function preserved Urinalysis no signs of UTI Given IV NSS at 150 cc/h Flomax 0.4 mg at bedtime Urology consulted:We discussed that intervention could be undertaken with cystoscopy, possible ureteroscopy and stone removal, ureteral stent placement. At this point, I think the risks of surgery outweigh the benefits of giving her a trial of passage with medical expulsive therapy. She was in agreement with this. If she is feeling well this afternoon, even if she has not passed the stone it would be ok for discharge home on medical expulsive therapy. If she continues to have poorly controlled pain and cannot be discharged and cannot pass the stone, we will tentatively plan for operative intervention on 06/11. Patient feeling better later in the afternoon Requesting for discharge Discharge to home with increased oral fluid intake, ibuprofen as needed, Flomax, follow-up with PCP this coming week Hypokalemia Resolved bronchial asthma, stable Anxiety/mood disorder, patient admits to increased anxiety from illness ongoing vape use DVT prophylaxis. SCDs Re: Hematuria Full code Disposition Discharge to home Follow-up with PCP in 1 week plan of care discussed with patient in detail and at length all questions answered she is understanding, agreeable, comfortable with the plan of care Updated Medication List Medication Instructions Recorded Confirmed Type lamotrigine 100 mg tablet 100 mg PO HS 06/06/23 06/06/23 History promethazine 25 mg tablet 25 mg PO Q6H PRN nausea and 06/06/23 Rx vomiting #14 tabs quetiapine 50 mg tablet,extended 100 mg PO DAILY 06/06/23 06/06/23 History release 24 hr alprazolam 0.5 mg tablet 0.5 mg PO BID PRN Anxiety 06/10/23 06/10/23 History ibuprofen 400 mg tablet 400 mg PO Q6H PRN pain #14 tabs 06/10/23 Rx tamsulosin 0.4 mg capsule 0.4 mg PO HS 10 days #10 caps 06/10/23 Rx Hospital Stay Data Consultations 06/09/23 21:40 ED Decision to Admit Stat 06/10/23 03:14 Consult Urology Routine Diagnostic Imagining Performed 06/09/23 19:56 CT abd pelvis wo con Stat Pending Results Patient Have Any Pending Studies at Discharge: No Discharge Instructions Given to Patient (Per Discharging Provider) PLEASE REFER TO YOUR NEW MEDICATION LIST AND FOLLOW INSTRUCTIONS CAREFULLY. YOUR NEW MEDICATIONS INCLUDE: FLOMAX- to relax the ureter and assist with stone passage - stop if you experience lightheadedness IBUPROFEN- as needed for pain - limit to every 400mg every 6 hours only DRINK PLENTY OF WATER. CONTINUE TO STRAIN URINE AT HOME. PLEASE CALL YOUR PRIMARY CARE PHYSICIAN OR RETURN TO THE ER IF WITH WORSENING OF SYMPTOMS, INCLUDING PAIN, FEVER/CHILLS, CHANGES WITH URINATION, BLOOD IN THE URINE, NAUSEA/VOMITING, ETC FOLLOW UP WITH PRIMARY CARE PHYSICIAN IN 1 WEEK. THE CLINIC WILL BE CALLING YOU SOON FOR THE APPOINTMENT. Total Time Total Time Spent Total Time Spent (In Minutes): >30 minutes
--- NOTE | 2023-06-10 19:01 | Discharge Summary ---
Discharge Summary Date of Service June 10, 2023 Notes For Next Care Provider Medication Changes From Visit Ibuprofen 20 mg p.o. 6 hours as needed Tamsulosin 0.4 mg p.o. at bedtime Admission HPI Per Admitting Provider History obtained from patient, family, and records. Medical history significant for bronchial asthma, anxiety/mood disorder, GERD, celiac disease, ongoing vape use. 4 days ago patient noted achy left-sided abdominal pain, nausea, vomiting diarrhea symptoms. Symptoms attributed to viral gastroenteritis. Seen at the ER but later discharged home. Worsening symptoms later associated with GI symptoms and hematuria. No fever, no chills, no chest pain, no SOB. Patient seen at urgent care center yesterday. UA and CAT scan requested. Patient consulted ER for worsening symptoms. Flomax administered at the ER for renal colic. Medical History as above Surgical History : Family History : Personal/Social history : Principal Dx & Hospital Course #1 = Principal Diagnosis (1) Renal colic: 2 mm UVJ stone, left Renal function preserved Urinalysis no signs of UTI Given IV NSS at 150 cc/h Flomax 0.4 mg at bedtime Urology consulted:We discussed that intervention could be undertaken with cystoscopy, possible ureteroscopy and stone removal, ureteral stent placement. At this point, I think the risks of surgery outweigh the benefits of giving her a trial of passage with medical expulsive therapy. She was in agreement with this. If she is feeling well this afternoon, even if she has not passed the stone it would be ok for discharge home on medical expulsive therapy. If she continues to have poorly controlled pain and cannot be discharged and cannot pass the stone, we will tentatively plan for operative intervention on 06/11. Patient feeling better later in the afternoon Requesting for discharge Discharge to home with increased oral fluid intake, ibuprofen as needed, Flomax, follow-up with PCP this coming week Hypokalemia Resolved bronchial asthma, stable Anxiety/mood disorder, patient admits to increased anxiety from illness ongoing vape use DVT prophylaxis. SCDs Re: Hematuria Full code Disposition Discharge to home Follow-up with PCP in 1 week plan of care discussed with patient in detail and at length all questions answered she is understanding, agreeable, comfortable with the plan of care Discharge Exam General- oriented x 3, not in distress, speaks in sentences with no effort or accessory muscle use Head- atraumatic Eyes- PERRL, EOMI, anicteric ENT- oropharynx clear Neck- supple, no JVD, no adenopathy, no thyromegaly; carotids +2/2, no bruits appreciated Lungs- clear to auscultation bilaterally, no rales/wheezes Heart- normal rate, regular rhythm; no murmur, no gallop, no rub appreciated Abdomen- normal bowel sounds, nondistended, soft, mild left upper quadrant tenderness, no masses or hepatosplenomegaly No CVA tenderness Extremities- no pretibial edema, no calf tenderness; peripheral pulses intact Neuro- alert, oriented x 3; CN 2-12 grossly intact; motor 5/5 bilaterally;sensation 100% on all extremities; no other gross focal neurologic deficits Skin- warm & dry Updated Medication List Medication Instructions Recorded Confirmed Type lamotrigine 100 mg tablet 100 mg PO HS 06/06/23 06/06/23 History promethazine 25 mg tablet 25 mg PO Q6H PRN nausea and 06/06/23 Rx vomiting #14 tabs quetiapine 50 mg tablet,extended 100 mg PO DAILY 06/06/23 06/06/23 History release 24 hr alprazolam 0.5 mg tablet 0.5 mg PO BID PRN Anxiety 06/10/23 06/10/23 History ibuprofen 400 mg tablet 400 mg PO Q6H PRN pain #14 tabs 06/10/23 Rx tamsulosin 0.4 mg capsule 0.4 mg PO HS 10 days #10 caps 06/10/23 Rx Hospital Stay Data Consultations 06/09/23 21:40 ED Decision to Admit Stat 06/10/23 03:14 Consult Urology Routine Diagnostic Imagining Performed 06/09/23 19:56 CT abd pelvis wo con Stat COMPARISON: No relevant prior studies available. FINDINGS: Lung bases: Unremarkable. No mass. No consolidation. ABDOMEN: Liver: Unremarkable. Gallbladder and bile ducts: Unremarkable. No calcified stones. No ductal dilation. Pancreas: Unremarkable. No ductal dilation. Spleen: Unremarkable. No splenomegaly. Adrenals: Unremarkable. No mass. Kidneys and ureters: Obstructing 2 mm left UVJ stone causing mild upstream hydroureteronephrosis. Right kidney and collecting system are normal. Stomach and bowel: Unremarkable. No obstruction. No mucosal thickening. PELVIS: Appendix: Visualized segment of the appendix is normal; no secondary signs of appendicitis. Bladder: Unremarkable. No stones. Reproductive: Unremarkable as visualized. ABDOMEN and PELVIS: Intraperitoneal space: Unremarkable. No free air. No significant fluid collection. Bones/joints: No acute fracture. No dislocation. Soft tissues: Unremarkable. Vasculature: Unremarkable. No abdominal aortic aneurysm. Lymph nodes: Unremarkable. No enlarged lymph nodes. IMPRESSION: Obstructing 2 mm left UVJ stone causing mild upstream hydroureteronephrosis. Electronically signed by: Eyad Salcedo M.D. 06/09/23 20:49 PM Pending Results Patient Have Any Pending Studies at Discharge: No Discharge Instructions Given to Patient (Per Discharging Provider) PLEASE REFER TO YOUR NEW MEDICATION LIST AND FOLLOW INSTRUCTIONS CAREFULLY. YOUR NEW MEDICATIONS INCLUDE: FLOMAX- to relax the ureter and assist with stone passage - stop if you experience lightheadedness IBUPROFEN- as needed for pain - limit to every 400mg every 6 hours only DRINK PLENTY OF WATER. CONTINUE TO STRAIN URINE AT HOME. PLEASE CALL YOUR PRIMARY CARE PHYSICIAN OR RETURN TO THE ER IF WITH WORSENING OF SYMPTOMS, INCLUDING PAIN, FEVER/CHILLS, CHANGES WITH URINATION, BLOOD IN THE URINE, NAUSEA/VOMITING, ETC FOLLOW UP WITH PRIMARY CARE PHYSICIAN IN 1 WEEK. THE CLINIC WILL BE CALLING YOU SOON FOR THE APPOINTMENT. Total Time Total Time Spent Total Time Spent (In Minutes): >30 minutes
[2023-06-10] MEDS ORDERED: lamoTRIgine 100 MG TAB PO SCH (21:00)
[2023-06-10] MEDS ORDERED: QUEtiapine FUMARATE 50 MG TABCR PO SCH (21:00)
[2023-06-10] MEDS ORDERED: TAMSULOSIN HCL 0.4 MG CAP PO SCH (21:00)
== END 2023-06-10 16:51 | disposition home or self-care (01) | DRG 694 ==
LOC: ED 16:54 → INTOOBSV 06-10 00:56 → 3W 06-10 00:56